=== PATIENT | female | born 1960 | race Caucasian/White ===

== ENCOUNTER → 2016-11-23 | Outpatient (CLI) | payer BC ==
[~2016-11-23] MED LIST: AMIT75TA2 PO; ASPEC325 PO; ASPI81TA28 PO; BROM0.07 OPL; CALCTAB5 PO; CHOL100027 PO; CLC100 PO; FLUT0.15 NAE; MECL25TA2 PO; NAPR500T3 PO; OXYC-57 PO; PRED1SUS OPL; PREG75CA PO; SENNTAB23 PO; SUCR1TAB29 PO; SUMA6KIT INJ; TIZA4CAP PO; TOPI50TA24 PO; ULT50X PO
== END | disposition home or self-care (01) ==
LOC: C.RDSM 15:59
PROVIDERS: ATTEND Physical Medicine & Rehabilitation Sports Medicine
DX: M17.12 Unilateral primary osteoarthritis, left knee (principal); M25.662 Stiffness of left knee, not elsewhere classified; Z96.652 Presence of left artificial knee joint

== ENCOUNTER 2017-02-09 07:51 | Inpatient (IN) | payer BC ==
[2017-01-25 14:38] VITALS: BMI 32.0
--- NOTE | 2017-01-25 15:03 | PAT Medication Instructions ---
Service Date Jan 25, 2017. Current Home Medication List Amitriptyline Hcl (Elavil), 150 MG PO HS Aspirin (Aspirin Ec), 81 MG PO QAM Calcium (Caltrate), 600 MG PO QAM Cholecalciferol (Vitamin D 1000 Unit), 2,000 INTER.UNIT PO QAM Docusate Sodium (Docusate Sodium), 100 MG PO BID Fluticasone Propionate (Nasal) (Flonase Allergy Relief), 2 SPRAY ELIZA DAILY PRN for allergies Meclizine Hcl (Antivert), 12.5-25 MG PO TID PRN for DIZZINESS Naproxen (Naproxen), 1 TAB PO BID PRN for Pain Pregabalin (Lyrica), 75 MG PO BID Sennosides-Docusate Sodium (Stool Softener), 100 MG PO QAM Topiramate (Topamax), 1 TAB PO BID Medication Instructions For Your Scheduled Surgery - Hold the following medications the morning of surgery: Calcium (Caltrate), 600 MG PO QAM Cholecalciferol (Vitamin D 1000 Unit), 2,000 INTER.UNIT PO QAM Docusate Sodium (Docusate Sodium), 100 MG PO BID Naproxen (Naproxen), 1 TAB PO BID PRN for Pain Sennosides-Docusate Sodium (Stool Softener), 100 MG PO QAM - Take the following medications the morning of surgery with a sip of water OTHERWISE NOTHING TO EAT OR DRINK AFTER MIDNIGHT: Aspirin (Aspirin Ec), 81 MG PO QAM Pregabalin (Lyrica), 75 MG PO BID Fluticasone Propionate (Nasal) (Flonase Allergy Relief), 2 SPRAY ELIZA DAILY PRN for allergies Meclizine Hcl (Antivert), 12.5-25 MG PO TID PRN for DIZZINESS Topiramate (Topamax), 1 TAB PO BID - Take the following medications as scheduled the night before surgery: Amitriptyline Hcl (Elavil), 150 MG PO HS Docusate Sodium (Docusate Sodium), 100 MG PO BID Pregabalin (Lyrica), 75 MG PO BID Meclizine Hcl (Antivert), 12.5-25 MG PO TID PRN for DIZZINESS Naproxen (Naproxen), 1 TAB PO BID PRN for Pain Topiramate (Topamax), 1 TAB PO BID If you have any questions please call us at [phone] or [phone] or [phone]
[2017-01-25 15:51] LABS: BASO % 0.6 %; BASO ABS # 0.03 K/uL (0-0.2); COMPLETE YES; EOS % 1.8 %; HEMATOCRIT 37.1 % (37-47); LYMPH % 36.1 %; LYMPH ABS # 1.82 K/uL (1.2-3.4); MEAN CELL VOLUME 90.7 fL (80-100); MEAN CORPUSCULAR HEMOGLOBIN 30.8 pg (25-34); MEAN PLATELET VOLUME 9.2 fL (7.4-10.4); MONO % 10.1 %; NEUT % 51.4 %; PLATELET COUNT 240 K/uL (130-400); RED BLOOD COUNT 4.09 M/uL (4.2-5.4); WHITE BLOOD COUNT 5.04 K/uL (4.8-10.8)
[2017-01-25 16:04] LABS: BUN/CREATININE RATIO 22.8 (10-20); CALCIUM 9.2 mg/dl (8.5-10.1); CREATININE 0.72 mg/dl (0.60-1.20); POTASSIUM 3.7 mmol/L (3.5-5.1)
--- NOTE | 2017-02-01 16:11 | History and Physical ---
History & Physical Date & Time of Service: Feb 01, 2017 at 15:52 Chief Complaint: Left Total Knee Stiffness Primary Care Physician: Gilbert Morejon M.D. (MEDICAL) History of Present Illness Source: patient Karo Chase is a 56 year old female who underwent a Left Total Knee Arthroplasty with Dr. Piero Mayberry on 08/25/16. She developed post operative stiffness and on 10/12/2016 she underwent a left Total Knee Arthroplasty Manipulation. Post operatively she was given instructions for outpatient physical therapy. She was provided with a Extension and Flexion dynamic splints for use at home. She performed outpatient physical therapy routinely. Her left knee stiffness persisted and plateaued. She is scheduled to have a left knee open debridement and manipulation, possible poly exchange with Dr. Mayberry on 02/09/17. She has stiffness daily, she is back to work but develops pain in that knee after working all day. She has failed conservative outpatient treatment with therapy and increasing range of motion. Surgical intervention discussed and she wishes to proceed with the aforementioned procedure with Dr. Mayberry. Past Medical/Surgical History Medical Problems: (1) Arthritis Status: Chronic (2) Fibromyalgia Status: Chronic 3. History of migraines 4. History of UTI, but nothing recent 5. S/p ORIF right humerus fracture with Dr. Mayberry in June 2015 6. History of tubal ligation 7. S/P left total knee arthroplasty 08/25/2016 and subsequent left total knee manipulation 10/12/[address] Mayberry Family History Blood clots Social History She does not currently use an assistive device for ambulation. Smoking Status: Never Smoker Smokeless Tobacco Use: No Alcohol Use: none Drug Use: none Marital Status: Housing status: lives with family Occupational Status: employed Immunizations History of Influenza Vaccine: Yes Influenza Vaccine Date: Aug 25, 2012 History of Tetanus Vaccine?: Yes Tetanus Immunization Date: Nov 13, 2010 History of Pneumococcal: Yes Pneumococcal Date: Aug 25, 2012 History of Hepatitis B Vaccine: Yes Hepatitis Immunization Date: Nov 22, 2002 Multi-Drug Resistant Organisms History of MDRO: No Allergies Coded Allergies: No Known Allergies (Unverified , 01/25/17) Home Medications Scheduled Amitriptyline Hcl (Elavil), 150 MG PO HS Aspirin (Aspirin Ec), 81 MG PO QAM Calcium (Caltrate), 600 MG PO QAM Cholecalciferol (Vitamin D 1000 Unit), 2,000 INTER.UNIT PO QAM Docusate Sodium (Docusate Sodium), 100 MG PO BID Pregabalin (Lyrica), 75 MG PO BID Sennosides-Docusate Sodium (Stool Softener), 100 MG PO QAM Topiramate (Topamax), 1 TAB PO BID Scheduled PRN Fluticasone Propionate (Nasal) (Flonase Allergy Relief), 2 SPRAY ELIZA DAILY PRN for allergies Meclizine Hcl (Antivert), 12.5-25 MG PO TID PRN for DIZZINESS Naproxen (Naproxen), 1 TAB PO BID PRN for Pain Review of Systems Constitutional: No chills, No fatigue, No fever, No sweats, No weight loss Eyes: No worsening of vision ENT: No dental problems, No hearing loss, No nasal symptoms, No sore throat Respiratory: No cough, No shortness of breath, No wheezing Cardiovascular: No chest pain, No edema, No palpitations Abdomen: No constipation, No diarrhea, No nausea, No pain, No vomiting Musculoskeletal: + joint pain (mild pain left knee), No calf pain, No swelling Genitourinary - Female: No dysuria, No rash, No urinary frequency, No urinary incontinence, No urinary urgency Neurologic: No balance problems, No memory loss, No numbness/tingling Psychiatric: No anxiety, No depression symptoms Hematologic / Lymphatic: No abnormal bleeding/bruising, No clotting problems Integumentary: No itch, No rash Physical Exam General Appearance: WD/WN, no apparent distress, + pertinent finding (normal mood and affect, height is 5 feet 2 inches, Weight is 185 pounds.) Head: normocephalic, atraumatic Eyes: normal inspection, PERRL, EOMI, sclerae normal ENT: normal ENT inspection, hearing grossly normal, TMs normal, pharynx normal , + pertinent finding (Good dentition) Neck: supple, no adenopathy, no carotid bruits, trachea midline Respiratory/Chest: chest non-tender, lungs clear, normal breath sounds, no respiratory distress, no accessory muscle use Cardiovascular: regular rate, rhythm, no edema, no murmur, normal peripheral pulses Abdomen/GI: normal bowel sounds, non tender, soft Back: normal inspection, normal range of motion Extremities/Musculoskelatal: no calf tenderness, normal capillary refill, no pedal edema, + pertinent finding (ROM left knee 30-80 degrees) Neurologic/Psych: no motor/sensory deficits, alert, normal mood/affect, oriented x 3 Skin: normal color, warm/dry, no rash Lymphatic: no adenopathy Diagnostics Laboratory Results 01/25/17 15:05 Red Blood Count 4.09, Mean Corpuscular Volume 90.7, Mean Corpuscular Hemoglobin 30.8, Mean Corpuscular Hemoglobin Concent 34.0, Mean Platelet Volume 9.2, Neutrophils (%) (Auto) 51.4, Lymphocytes (%) (Auto) 36.1, Monocytes (%) (Auto) 10.1, Eosinophils (%) (Auto) 1.8, Basophils (%) (Auto) 0.6, Neutrophils # (Auto ) 2.59, Lymphocytes # (Auto) 1.82, Monocytes # (Auto) 0.51, Eosinophils # (Auto ) 0.09, Basophils # (Auto) 0.03 01/25/17 15:05 Test 01/25/17 15:05 01/25/17 15:25 White Blood Count 5.04 K/uL (4.8-10.8) Red Blood Count 4.09 M/uL (4.2-5.4) Hemoglobin 12.6 g/dL (12.0-16.0) Hematocrit 37.1 % (37-47) Mean Corpuscular Volume 90.7 fL (80-100) Mean Corpuscular Hemoglobin 30.8 pg (25-34) Mean Corpuscular Hemoglobin Concent 34.0 g/dl (32-36) Platelet Count 240 K/uL (130-400) Mean Platelet Volume 9.2 fL (7.4-10.4) Neutrophils (%) (Auto) 51.4 % Lymphocytes (%) (Auto) 36.1 % Monocytes (%) (Auto) 10.1 % Eosinophils (%) (Auto) 1.8 % Basophils (%) (Auto) 0.6 % Neutrophils # (Auto) 2.59 K/uL (1.4-6.5) Lymphocytes # (Auto) 1.82 K/uL (1.2-3.4) Monocytes # (Auto) 0.51 K/uL (0.11-0.59) Eosinophils # (Auto) 0.09 K/uL (0-0.5) Basophils # (Auto) 0.03 K/uL (0-0.2) RDW Standard Deviation 42.7 fL (36.4-46.3) RDW Coefficient of Variation 12.8 % (11.5-14.5) Immature Granulocyte % (Auto) 0.0 % Immature Granulocyte # (Auto) 0.00 K/uL (0.00-0.02) Anion Gap 8.0 mmol/L (3-11) Est Creatinine Clear Calc Drug Dose 85.8 ml/min Estimated GFR () 108.5 Estimated GFR (Non- 93.6 BUN/Creatinine Ratio 22.8 (10-20) Calcium Level 9.2 mg/dl (8.5-10.1) Prothrombin Time 11.0 SECONDS (9.0-12.0) Prothromb Time International Ratio 1.0 (0.9-1.1) Activated Partial Thromboplast Time 25.3 SECONDS (21.0-31.0) Partial Thromboplastin Ratio 1.0 CXR normal Normal EKG Impression Assessment and Plan Assessment: Left total knee arthroplasty Stiffness Plan: Patient will be admitted on 02/09/2017 to undergo and left total knee open debridement and manipulation, possible poly exchange due to post operative stiffness left knee. Risks/complications of surgery were discussed and include but are not limited to infection, pain, bleeding, scarring, nerve and blood vessel damage, wound problems, weakness, stiffness, incomplete relief of symptoms, blood clots, hardware failure, loosening, wear, fracture, embolisms, heart attack, stroke or . All questions were answered, informed consent obtained. She had a Pre-Admission testing appointment on 01/25/2017. Her surgery will be completed with spinal anesthesia/peripheral nerve block. She will obtain a preoperative CBC, PRP, PT/PTT and Type and Screen prior to surgery. No medical clearance is necessary prior to surgery. She will be in observation overnight for pain control, inpatient physical therapy. She was instructed to bring or flexion and extension braces to the hospital with her. She was instructed to be NPO p MN. She well be placed on Lovenox 40mg daily x 2 weeks which was sent to her pharmacy preoperatively with a refill available. All questions were answered, she knows to call with any further questions or concerns. Level of Care Med/Surg Advanced Directives Existing Living Will: No Existing Power of Child Care Sitter: No VTE Prophylaxis VTE Risk Assessment Done? Y/N: Yes Risk Level: Moderate Given or contraindicated: Enoxaparin (Lovenox)SQ (40 mg daily x 2 weeks), T.E.D. Stockings
[~2017-02-09] VITALS: Ht 157.5 cm; Wt 80.5 kg
[2017-02-09] VITALS (7 sets, daily range): BP systolic 110–139; BP diastolic 64–76; PULSE 67–104; TEMP 36.4–36.8; O2SAT 94–99; Ht 157.5 cm; Wt 80.5 kg
[~2017-02-09 07:51] MED LIST changes: +ACETAMINOPHEN 500 MG TAB PO SCH; -ASPEC325 PO; -BROM0.07 OPL; +BUPIVACAINE 0.5 % 5 MG/1 ML PF 10ML VIAL ONE; +CEFAZOLIN 2000 MG/60 ML D5W 60 ML IV SCH; +CLONIDINE HCL 0.1 MG/24 HR TRANSDERM SYS TD SCH; +CeleBREX 200 MG CAP PO SCH; +DEXAMETHASONE 4 MG TAB PO SCH; +FAMOTIDINE 20 MG TAB PO SCH; +GABAPENTIN 300 MG CAP PO SCH; +LACTATED RINGER'S 1000ML 1,000 ML IV SCH; +LACTATED RINGER'S 1000ML 500 ML IV ONE; +LACTATED RINGER'S 1000ML IV SCH; +METOCLOPRAMIDE HCL 10 MG TAB PO SCH; -OXYC-57 PO; +OXYCODONE HCL 10 MG TABCR (OXYCONTIN) PO SCH; -PRED1SUS OPL; +ROPIVACAINE 0.5% 5 MG/ML 30 ML VIAL ONE; +ROPIVACAINE 5MG/ML 30 ML 100 MG, MoRPHine SULFATE 4 MG, EpINEphrine INJ 1MG/ML AMP 0.2 ... INFIL SCH; -SUCR1TAB29 PO; -SUMA6KIT INJ; -TIZA4CAP PO; +TRAMADOL HCL 50 MG TAB PO SCH; -ULT50X PO
[2017-02-09] MEDS ORDERED: MIDAZOLAM HCL 1 MG/ML 2ML VIAL ONE ×3 (08:03→09:15)
[2017-02-09] MEDS ORDERED: PROPOFOL IV EMULSION 10 MG/ML 20 ML VIAL IV ONE ×4 (08:47→12:22)
[2017-02-09] MEDS ORDERED: DEXAMETHASONE SOD INJ 4 MG/ML VIAL ONE (08:47)
[2017-02-09] MEDS ORDERED: FENTANYL CITRATE INJ 50 MCG/1 ML 2 ML VIAL ONE (08:47)
[2017-02-09] MEDS ORDERED: ONDANSETRON INJ 2 MG/ML 2 ML VIAL ONE (08:47)
[2017-02-09] MEDS ORDERED: LIDOCAINE HCL 2% 2 ML VIAL (20MG/ML) ONE (08:47)
[2017-02-09] MEDS ORDERED: PHENYLEPHRINE 100MCG/ML 5ML SYR IV PRN (09:15)
[2017-02-09] MEDS ORDERED: EpHEDrine SULFATE INJ 50 MG/ML AMP IV PRN (09:15)
[2017-02-09] MEDS ORDERED: ATROPINE SULFATE 0.1 MG/ML 5ML SYR IV PRN (09:15)
[2017-02-09] MEDS ORDERED: HYDROmorphone INJ 2 MG/ML SYR/VIAL IV PRN (09:15)
[2017-02-09] MEDS ORDERED: ONDANSETRON INJ 2 MG/ML 2 ML VIAL IV PRN ×2 (09:15→13:45)
--- NOTE | 2017-02-09 09:52 | History & Physical Bridge Note ---
H&P Re-Evaluation Bridge Note: I have examined the patient, reviewed the History & Physical and in the interval since the performance of the History & Physical I have noted the following changes of clinical significance: No changes noted
[2017-02-09] MEDS ORDERED: BACITRACIN 50000 UNIT VIAL ONE (10:08)
[2017-02-09] MEDS ORDERED: ORTHO JOINT ANESTHETIC ONE (10:08)
[2017-02-09] MEDS ORDERED: EpHEDrine SULFATE 50MG/5ML SYR ONE (10:45)
[2017-02-09] MEDS ORDERED: EpHEDrine SULFATE INJ 50 MG/ML AMP ONE (11:45)
[2017-02-09] MEDS ORDERED: PHENYLEPHRINE HCL INJ 10 MG/ML VIAL ONE (12:56)
[2017-02-09] MEDS ORDERED: SOD PHOSPHATE/SOD BIPHOSPHATE ENEMA 132 ML BTL PR PRN (13:45)
[2017-02-09] MEDS ORDERED: MECLIZINE HCL 25 MG TAB PO PRN (13:45)
[2017-02-09] MEDS ORDERED: TRAMADOL HCL 50 MG TAB PO PRN (13:45)
[2017-02-09] MEDS ORDERED: BISACODYL 10 MG SUPP PR PRN (13:45)
[2017-02-09] MEDS ORDERED: FLUTICASONE PROPIONATE NA SPR 16 GM BTL NAE PRN (13:45)
[2017-02-09] MEDS ORDERED: ALUMINUM/MAGNESIUM/SIMETH (MAALOX MAX) 30 ML UDC PO PRN (13:45)
[2017-02-09] MEDS ORDERED: MoRPHine SULFATE 2 MG/ML CARP IV PRN (13:45)
[2017-02-09] MEDS ORDERED: MAGNESIUM HYDROXIDE SUSP 30 ML UDC PO PRN (13:45)
--- NOTE | 2017-02-09 14:04 | [facility] Post Operative Brief Note ---
Immediate Operative Summary Operative Date Feb 09, 2017. Pre-Operative Diagnosis Left Total Knee Arthroplasty Stiffness Post-Operative Diagnosis Left Total Knee Arthroplasty Stiffness Procedure(s) Performed Left Knee Open Debridement and Manipulation, Poly Exchange Surgeon Dr. Piero Mayberry Insurance Agents Supervisor Surgeon(s) Emily Hoskins PA-C Estimated Blood Loss 100ML Findings arthofibrosis Specimens A. Left Knee Explanted Hardware Drains 2 Anesthesia spinal with sedation/adductor block Complication(s) None Disposition Recovery Room / PACU
--- NOTE | 2017-02-09 14:37 | Anesthesiology Progress Note ---
Anesthesia Post Op Note Date & Time Feb 09, 2017 at 14:37 Vital Signs Pain Intensity: 0 Vital Signs Past 12 Hours Date Time Temp Pulse Resp B/P Pulse Ox O2 Delivery O2 Flow Rate FiO2 02/09/17 14:13 84 18 97 02/09/17 14:13 84 18 02/09/17 14:13 84 18 02/09/17 14:13 84 18 97 02/09/17 14:10 110/60 02/09/17 14:10 110/60 02/09/17 14:08 87 18 96 02/09/17 14:08 88 18 02/09/17 14:08 87 18 96 02/09/17 14:08 88 18 02/09/17 14:05 126/61 02/09/17 14:05 126/61 02/09/17 14:03 89 23 96 02/09/17 14:03 87 23 02/09/17 14:03 89 23 96 02/09/17 14:03 87 23 02/09/17 14:00 127/57 02/09/17 14:00 127/57 02/09/17 13:58 86 13 95 02/09/17 13:58 87 13 02/09/17 13:58 86 13 95 02/09/17 13:58 87 13 02/09/17 13:55 121/60 02/09/17 13:55 121/60 02/09/17 13:53 93 17 95 02/09/17 13:53 93 17 95 02/09/17 13:53 92 17 02/09/17 13:53 92 17 02/09/17 13:50 103/61 02/09/17 13:50 103/61 02/09/17 13:48 94 17 02/09/17 13:48 93 17 105/58 96 02/09/17 13:48 35.8 93 16 105/58 95 Mask 10 02/09/17 13:48 94 17 02/09/17 13:48 93 17 105/58 96 02/09/17 08:37 36.8 67 18 123/64 97 Room Air Notes Mental Status: alert / awake / arousable, participated in evaluation Pt Amnestic to Procedure: Yes Nausea / Vomiting: adequately controlled Pain: adequately controlled Airway Patency, RR, SpO2: stable & adequate BP & HR: stable & adequate Hydration State: stable & adequate Anesthetic Complications: no major complications apparent
--- NOTE | 2017-02-09 15:15 | OPERATIVE REPORT ---
DATE OF OPERATION: 02/09/2017 PREOPERATIVE DIAGNOSIS: Arthrofibrosis, status post left total knee replacement. POSTOPERATIVE DIAGNOSIS: Same. PROCEDURE: Open scar tissue debridement, manipulation and polyethylene exchange. SURGEON: Piero Mayberry MD SCUBA DIVING TEACHER: Emily Hoskins PA-C. No resident or fellow available. ANESTHESIA: Spinal with sedation and adductor canal block. INDICATIONS OF PROCEDURE: The patient is a 56-year-old female status post otherwise uncomplicated left total knee arthroplasty. This was done back in August. She developed postoperative stiffness, underwent a manipulation in October and currently has stiffness, which interferes with her ADLs. Prior to her initial surgery in August, she was noted to have an approximate 20-degree flexion contracture in her knee. Her flexion at that time was approximately 125-130 degrees. After the initial operation, she did have full extension and good flexion on the table, subsequently has developed stiffness. X-rays showed no evidence of heterotopic ossification. There is no malpositioning or oversizing of the components evident. Sed rate and C-reactive protein are within normal limits and so, there is no evidence of infection. She has undergone extensive therapy as well as use of dynamic flexion and extension splints without relief. PROCEDURE IN DETAIL: Informed consent was obtained. The patient identified as Karo Chase. She identified the operative site as the left knee. I marked it with my initials. A preop surgical time out was performed. A preop dose of IV antibiotics was given. She was taken to the operating room, positioned supine on the operating room table, a tourniquet about the left thigh, a padded post under the knee and a bump under the left hip, the leg was prepped and draped in usual sterile fashion. DVT prophylaxis intraoperatively with foot pumps, postoperatively with early mobility and Lovenox. The exam under anesthesia showed no effusion, no patellar mobility, range 0/25/85. A gentle manipulation was attempted without any improvement. The leg was prepped and draped in the usual sterile fashion including the foot. The limb was exsanguinated with the Esmarch and tourniquet inflated to 250 mmHg. The prior incision was opened and lengthened by a few centimeters in each direction. The extensor mechanism was identified and when possible, I developed virginal tissue planes, particularly medially and allowing the excessive scar tissue to be dissected off of the extensor mechanism. A lateral flap was elevated as well to machine operator helper in identifying the extensor mechanism. A medial parapatellar arthrotomy and a quadriceps snip was marked out. The arthrotomy was performed and the quadriceps snip beginning at the apex of the incision proximally was performed across the quadriceps tendon and dividing the fascia of the vastus lateralis. The muscle itself was left intact. There was minimal fluid within the knee. There was some fibrinous material in the intercondylar notch and in the very posterior aspect of the knee, but otherwise was fairly solid scar tissue. There were large adhesions in the suprapatellar pouch and these were excised with electrocautery. The quadriceps and patellar tendons were noted to be markedly thickened about 1.5-2 cm in thickness. Debridement of these was performed as appropriate. The medial and lateral gutters were closed off with scar tissue and these were carefully recreated with blunt dissection and electrocautery. The patella was identified and scar tissue around the patellar button was removed. Care was taken at all times to protect the intact components. The patellar tendon was scarred down to the proximal tibia. This was resected up to the level of what was believed to be the patellar tendon. The lateral soft tissue in the lateral gutter was debrided and the lateral margin on the tibia was defined. The tissue was very thick and rigid and then some areas would not like and required significant debridement in order to improve tissue mobility. I identified the lateral border of the patella extra-articularly. This was [place] tissue. I dissected deep to it to identify the plane between the tibia, scar tissue and the patellar tendon, and then resected all the scar tissue that was present posterior to this level up to the level of the inferior pole of the patella and out laterally. I then placed a 1/8-inch Steinmann pin into the tibial tubercle to prevent avulsion and down along with a combination of quadriceps snip, allowed flexion of the knee and dislocation of the polyethylene component. An extensile medial release was performed in a subperiosteal fashion. The medial gutter was carefully recreated. Both collateral ligaments were preserved. The components looked normal. There were some scattered areas of soft bone around the proximal tibia neither the femur, tibia or patella were loose to manual stressing. The polyethylene component was removed and then a lamina license examiner was inserted in between the medial and lateral compartments when appropriate, padded with a double folded over a lap sponge and used to open up the joint. Scar tissue in the back of the knee was then debrided back to the level of the popliteus muscle. Again, the collateral ligaments were protected. The scar tissue was incised and then excised as well. The lamina license examiner was one without teeth. After thoroughly releasing and debriding the posterior capsule and also releasing more tissue on the lateral joint area, there was a small ossicle noted laterally, which was also removed adjacent to the tibia. The 10-mm polyethylene was inserted. This was downsized compared to the 12.5 that was present. This resulted in extension of -5 and flexion to about 110-115. Gentle manipulation in both flexion and extension was performed. The knee was stable in full extension. In mid position, there was trace LCL laxity and in 90 degrees of flexion, there was a 1+ LCL laxity. The patella was somewhat positioned inferior and tend to track inferior. At this time, the tourniquet was let down after 100 minutes of inflation. Meticulous hemostasis was performed. Ortho mix #1 morphine, epinephrine, and ropivacaine was injected into the back of the knee, 10 mL. Ten mL into the skin and soft tissues and 10 mL divided between the medial and lateral gutters. Copious irrigation was performed. Meticulous hemostasis was achieved and Betadine lavage for 3-5 minutes was performed. The manipulation was also performed. The final polyethylene implant was inserted showing aforementioned range of motion of 0/5/115. The knee was then placed into about 45-60 degrees of flexion. I performed V-Y lengthening of the extensor mechanism by a distance of about 2 cm, which I felt would help improve flexion. The knee was held in this position and #2 FiberWire was utilized to repair the quadriceps snip in an anatomic fashion. Prior to that, the quadriceps main division was repaired back in an anatomic fashion. Two drains were inserted exiting out the lateral knee. Interrupted #2 FiberWires were utilized down to the equator of the patella. This was oversewn over the quadriceps snip and the arthrotomy with a running locked #1 Vicryl. The lower portion of the arthrotomy was closed with running and interrupted #1 Vicryl. The skin was closed in layers with 0 and 2-0 Vicryl. The range of motion again was assessed and found to be the same. Staple was utilized on the skin. The leg was cleaned with wet and dry sponges. A soft sterile dressing was applied. The patient was then awakened from anesthesia without difficulty, taken to recovery room in stable condition. There were no specimens or complications. Counts were correct at the end of case. Blood loss was approximately 100 mL. At the conclusion of the operation, I spoke to the patient's family and informed them of my findings. Postoperative instructions were given. Plan is for anticoagulation with Lovenox beginning in the morning. I will go ahead and work on aggressive physical therapy to maintain and improve range of motion. Pain control is also a priority. The 12.5-mm thick size 2.5 polyethylene insert was exchanged for a 10-mm thick one. This seemed to help improve the range of motion as well. This is a J\T\J PFC Sigma rotating platform type knee. I attest to the content of the Intraoperative Record and any orders documented therein. Any exceptio ns are noted below.
[2017-02-09] MEDS: OXYCODONE HCL IR 5 MG TAB (IMMEDIATE RELEASE) PO PRN ×2 (16:42→20:41)
[2017-02-09] MEDS: D5W AND 1/2NSS + 20MEQ KCL 1,000 ML IV SCH (16:58)
--- NOTE | 2017-02-09 17:24 | [facility] Operative Report ---
Operative Report Operative Date Feb 09, 2017. Pre-Operative Diagnosis Left Total Knee Arthroplasty Stiffness Post-Operative Diagnosis Left Total Knee arthroplasty Stiffness Procedure(s) Performed Left knee open debridement, manipulation under anesthesia, tibial poly exchange Surgeon Dr. Piero Mayberry Change Booth Attendant Surgeon(s) Emily Hoskins PA-C Estimated Blood Loss 100ML Findings stiffness left knee Specimens A. Left Knee Explanted Hardware Drains 2 Anesthesia spinal with sedation/adductor block Complication(s) None Disposition Recovery Room / PACU (stable) Indications Patient is a 56 year old female, s/p Left TKA in 08/2016, developed post operative stiffness, failed conservative treatment which included physical therapy, braces and manipulation under anesthesia. Surgical intervention was discussed, she agreed to proceed, risks/complications discussed, informed consent obtained. Description of Procedure Patient was taken to the operating room, placed under spinal anesthesia with peripheral nerve block. She was given IV Ancef for surgical prophylaxis. Time out performed, prepped and draped in routine sterile fashion. I was present the entire case, please see Dr. Mayberry's operative report for further detail. I attest to the content of the Intraoperative Record and any orders documented therein. Any exceptions are noted below.
[2017-02-09] MEDS: CEFAZOLIN IV 2,000 MG in DEXTROSE 5% 50ML 50 ML IV SCH (17:43)
[2017-02-09] MEDS: KETOROLAC TROMETHAMINE 30 MG/ML VIAL IV. SCH ×2 (17:43→23:42)
--- NOTE | 2017-02-09 18:34 | PROGRESS NOTE ---
DATE: 02/09/2017 She is seen postoperatively from her left knee surgery. No problems are reported. Her pain is well controlled. She will wear the knee brace at all times except when doing therapy. She will also need to wear it for ambulating until she gets better quad control. She had a 1+ dorsalis pedis with normal sensation in the foot. She had 5/5 ankle and toe plantar flexion and dorsiflexion strength. Her dressing was clean and dry. I discussed with her my findings. The plan will be for to check drainage in the morning, possibly pull the drain, do therapy and start the Lovenox in the morning. We discussed the improvement in her range of motion. We will try to prevent flexion contracture from reoccurring by wearing a knee immobilizer when she is not doing flexion exercises and also at night. She is afebrile. Her vital signs are stable.
[2017-02-09] MEDS: PREGABALIN 75 MG CAP PO SCH (20:41)
[2017-02-09] MEDS: TOPIRAMATE 25 MG TAB PO SCH (20:42)
[2017-02-09] MEDS: DOCUSATE SODIUM 100 MG CAP PO SCH (20:42)
[2017-02-09] MEDS: AMITRIPTYLINE HCL 50 MG TAB PO SCH (20:42)
[2017-02-09] MEDS ORDERED: CeleBREX 200 MG CAP PO SCH (21:00)
[2017-02-10] MEDS: OXYCODONE HCL IR 5 MG TAB (IMMEDIATE RELEASE) PO PRN ×3 (01:54→21:27)
[2017-02-10] MEDS: CEFAZOLIN IV 2,000 MG in DEXTROSE 5% 50ML 50 ML IV SCH (01:54)
[2017-02-10] MEDS: D5W AND 1/2NSS + 20MEQ KCL 1,000 ML IV SCH ×2 (03:08→12:13)
[2017-02-10 04:00] VITALS: BP_SYST 96; BP_SYST 97; BP_DIAS 55; BP_DIAS 58; PULSE 77; TEMP 36.5; O2SAT 100
[2017-02-10] MEDS: ACETAMINOPHEN 325 MG TAB PO PRN (04:01)
[2017-02-10 05:37] LABS: HEMATOCRIT 31.6 % (37-47); MEAN CELL VOLUME 92.1 fL (80-100); MEAN CORPUSCULAR HEMOGLOBIN 30.9 pg (25-34); MEAN CORPUSCULAR HGB CONC 33.5 g/dl (32-36); MEAN PLATELET VOLUME 9.3 fL (7.4-10.4); PLATELET COUNT 226 K/uL (130-400); RED BLOOD COUNT 3.43 M/uL (4.2-5.4); WHITE BLOOD COUNT 10.13 K/uL (4.8-10.8)
[2017-02-10] MEDS: KETOROLAC TROMETHAMINE 30 MG/ML VIAL IV. SCH ×2 (06:04→12:12)
[2017-02-10 06:50] VITALS: BP 97/58; PULSE 77; TEMP 36.6; O2SAT 98
[2017-02-10] MEDS ORDERED: DEXAMETHASONE 4 MG TAB PO SCH (07:30)
--- NOTE | 2017-02-10 08:21 | Orthopedic Progress Note ---
Orthopedic Progress Note Date of Service Feb 10, 2017. Subjective Post OP Day: 1 Reports: feeling well, pain controlled w PO medications, Denies: SOB, calf pain , chest pain, complaints, light headedness, nausea / vomiting Additional Notes: States had some pain last night, especially at upper thigh, but much improved Objective calves soft nontender, N/V intact, capillary refill less than 2 sec., dressing C /D/I, A&O x3, toes mobile, hemovac drainage (125ml last shift.) Knee immobilizer in place Date Time Temp Pulse Resp B/P Pulse Ox O2 Delivery O2 Flow Rate FiO2 02/10/17 06:50 36.6 77 18 97/58 98 Room Air 02/10/17 04:00 36.5 77 16 96/55 100 Room Air 97/58 02/09/17 22:50 36.4 77 16 121/69 99 Room Air 02/09/17 19:20 Room Air 02/09/17 18:54 36.4 104 16 125/74 94 Room Air 02/09/17 17:53 36.4 104 16 129/75 96 Room Air 02/09/17 16:53 36.4 96 16 139/76 97 Room Air 02/09/17 16:27 36.4 98 16 120/69 97 Room Air 02/09/17 15:50 95 Room Air 02/09/17 15:50 95 Room Air 02/09/17 15:50 36.8 94 16 110/68 95 Room Air 2.0 02/09/17 15:32 94 16 02/09/17 15:32 92 16 96 02/09/17 15:30 128/62 02/09/17 15:27 94 15 02/09/17 15:27 95 15 97 02/09/17 15:26 103 14 02/09/17 15:26 103 14 96 02/09/17 15:25 134/65 02/09/17 15:21 98 16 96 02/09/17 15:21 98 16 02/09/17 15:20 113/64 02/09/17 15:16 97 19 96 02/09/17 15:16 97 19 02/09/17 15:15 130/68 02/09/17 15:11 93 16 97 02/09/17 15:11 93 16 02/09/17 15:10 128/62 02/09/17 15:06 98 20 02/09/17 15:06 98 20 97 02/09/17 15:05 127/61 02/09/17 15:01 108 14 94 02/09/17 15:01 108 14 02/09/17 14:56 96 19 95 02/09/17 14:56 97 19 02/09/17 14:55 130/63 02/09/17 14:51 99 19 95 02/09/17 14:51 98 19 02/09/17 14:50 125/62 02/09/17 14:46 91 15 02/09/17 14:46 90 15 95 02/09/17 14:45 130/62 02/09/17 14:41 94 21 94 02/09/17 14:41 94 21 02/09/17 14:40 113/63 02/09/17 14:39 92 16 02/09/17 14:39 93 16 94 02/09/17 14:35 120/62 02/09/17 14:34 88 15 95 02/09/17 14:34 88 15 02/09/17 14:34 36.9 90 21 120/62 93 Room Air 02/09/17 14:30 113/61 02/09/17 14:29 85 18 96 02/09/17 14:29 86 18 02/09/17 14:25 120/63 02/09/17 14:24 86 15 02/09/17 14:24 87 15 97 02/09/17 14:20 109/66 02/09/17 14:19 86 15 97 02/09/17 14:19 86 15 02/09/17 14:15 116/60 02/09/17 14:14 87 16 02/09/17 14:14 87 16 96 02/09/17 14:13 84 18 97 02/09/17 14:13 84 18 02/09/17 14:13 84 18 02/09/17 14:13 84 18 97 02/09/17 14:10 110/60 02/09/17 14:10 110/60 02/09/17 14:08 87 18 96 02/09/17 14:08 88 18 02/09/17 14:08 87 18 96 02/09/17 14:08 88 18 02/09/17 14:05 126/61 02/09/17 14:05 126/61 02/09/17 14:03 89 23 96 02/09/17 14:03 87 23 02/09/17 14:03 89 23 96 02/09/17 14:03 87 23 02/09/17 14:00 127/57 02/09/17 14:00 127/57 02/09/17 13:58 86 13 95 02/09/17 13:58 87 13 02/09/17 13:58 86 13 95 02/09/17 13:58 87 13 02/09/17 13:55 121/60 02/09/17 13:55 121/60 02/09/17 13:53 93 17 95 02/09/17 13:53 93 17 95 02/09/17 13:53 92 17 02/09/17 13:53 92 17 02/09/17 13:50 103/61 02/09/17 13:50 103/61 02/09/17 13:48 94 17 02/09/17 13:48 93 17 105/58 96 02/09/17 13:48 35.8 93 16 105/58 95 Mask 10 02/09/17 13:48 94 17 02/09/17 13:48 93 17 105/58 96 02/09/17 08:37 36.8 67 18 123/64 97 Room Air Laboratory Results 24 Hours: Test 02/10/17 05:17 Hematocrit 31.6 % Hemoglobin 10.6 g/dL Assessment & Plan Assessment: S/P open debridement; manipulation, poly exchange left knee for stiffness - POD 1 Plan: Continue out of bed/WBAT LLE PT today Knee immobilizer at rest and when in bed to help keep knee straight. Ice/elevation as needed for pain/swelling Continue hemovac, will recheck drainage later today. Functioning Start Lovenox 40 mg daily for DVT prophylaxis today. Regular diet Plan for discharge to her home with outpatient PT on . All questions answered, will discuss findings with Dr. Mayberry. Discharge Planning Discharge Planning: home with oppt Pain Management: Percocet, Ultram DVT Prophylaxis: TEDs, Lovenox (40 mg SQ daily x 2-4 weeks) Therapy: Physical Therapy
--- NOTE | 2017-02-10 08:50 | Anesthesiology Progress Note ---
Anesthesia Post Op Note Date & Time Feb 10, 2017 at 08:49 Vital Signs Vital Signs Past 12 Hours Date Time Temp Pulse Resp B/P Pulse Ox O2 Delivery O2 Flow Rate FiO2 02/10/17 08:00 Room Air 02/10/17 06:50 36.6 77 18 97/58 98 Room Air 02/10/17 04:00 36.5 77 16 96/55 100 Room Air 97/58 02/09/17 22:50 36.4 77 16 121/69 99 Room Air Notes Mental Status: alert / awake / arousable, participated in evaluation Pt Amnestic to Procedure: Yes Nausea / Vomiting: adequately controlled Pain: adequately controlled Airway Patency, RR, SpO2: stable & adequate BP & HR: stable & adequate Hydration State: stable & adequate Neuraxial Anesthesia: sensory block resolved Anesthetic Complications: no major complications apparent
[2017-02-10] MEDS: ENOXAPARIN 40 MG/0.4 ML SYR SQ SCH (09:33)
[2017-02-10] MEDS: CHOLECALCIFEROL 1000 INTER.UNIT TAB PO SCH (09:33)
[2017-02-10] MEDS: PANTOprazole SOD 40 MG TAB PO SCH (09:33)
[2017-02-10] MEDS: TOPIRAMATE 25 MG TAB PO SCH ×2 (09:33→21:00)
[2017-02-10] MEDS: PREGABALIN 75 MG CAP PO SCH ×2 (09:33→21:00)
[2017-02-10] MEDS: DOCUSATE SODIUM 100 MG CAP PO SCH ×2 (09:34→21:00)
[2017-02-10] MEDS: MULTIVITAMIN TAB PO SCH (09:34)
[2017-02-10] MEDS: CALCIUM 600MG + VIT D 400 IU TAB PO SCH (09:34)
[2017-02-10] MEDS: ASPIRIN 81 MG ECTAB PO SCH (09:34)
[2017-02-10 10:59] VITALS: BP 105/64; PULSE 73; TEMP 36.4; O2SAT 97
--- NOTE | 2017-02-10 13:59 | Discharge Instructions ---
Discharge Instructions Date of Service Feb 10, 2017. Admission Reason for Admission: Left Knee Stiff Total Knee Arthroscopy Discharge Discharge Diagnosis / Problem: Stiffness left Total Knee Arthoplasty Discharge Goals Goal(s): Decrease discomfort, Improve function, Increase independence Activity Recommendations Activity Limitations: per Instructions/Follow-up section Weightbearing Status: Left weightbearing (as tolerated) . Instructions / Follow-Up Instructions / Follow-Up New Medicine: * You will likely be taking one or more of these medications: 1. Lovenox - 40mg SQ daily x 2-4 weeks. You were provided a prescription preoperatively for 14 days with a refill. 2. Percocet - Take, as directed, when you need it, every four to six hours to control your pain. 3. Colace & Senokot - Take to prevent constipation which can be caused by narcotics. These can be bought [id number] at the pharmacy * The most common side effects of pain medicine and iron are nausea and constipation. If nausea or constipation is too much of a problem or if you have any questions about your new medicines or doses, call [facility] at . We will try to help you manage these issues. VERY IMPORTANT TO READ AND REVIEW" Physical Therapy: * Do your physical therapy at home as much as possible. These are the exercises you learned while in the hospital (quad sets, leg raises, calf pumps, gluteal squeezes, knee bending, and heel props.) You should do these exercises 3-4 times per day. * You may bear full weight on your leg with crutches or walker unless otherwise advised. Home Exercise: * You were shown a series of exercises (heel props, heel slides, etc.) in the hospital. Do these exercises three to four times each day including the exercises you were shown in physical therapy. Walking: * You may be up for short periods of time. Standing and walking for 1-2 hours at a time is usually okay. You should not stand or walk for excessive periods of time as this may cause increased pain and swelling. SELF CARE INSTRUCTIONS AFTER TOTAL KNEE REPLACEMENT A. You may need to continue a physical therapy program after discharge from the hospital. There are several options available to you. Your doctor will assist you in selecting the best one for you. 1. An out-patient facility 2 to 3 times a week for therapy or home therapy. 2. Continue working on all exercises taught to you in the hospital. Your goals should be to increase bending of your knee to 90 degrees and beyond and to fully straighten your knee. B. Your therapist will notify you when you are able to progress from a walker to a cane. C. Wear TEDS as much as possible.~ They may be removed at night for laundering. D. Do not place a pillow behind your knee when resting. A pillow at your ankle is okay. E. Ice your knee 15-20 minutes every 2-3 hours and elevate it above the level of your heart. F. You may shower on the fourth day after surgery using regular soap and water. Do not submerge until the wound is completely healed (approximately 2 weeks ). Until the fourth day after surgery, cover the incision/bandage with a bag or plastic wrap. G. Anyone who is touching your surgical incision area should wash their hands and wear gloves. H. Keep your incision covered with gauze pads under the NILDA hose until it is dry. VERY IMPORTANT TO READ AND REVIEW A. There are a few signs you need to watch for after you are home. Call [facility] if you notice any of the followin. Increased severe knee pain. Some pain is expected especially when you exercise. 2. Increased swelling in your leg or knee; pain or swelling of the calf muscle in either lower leg. 3. Any fluid drainage from the incision. 4. Shortness of breath or chest pain. 5. Numbness and tingling in the surgical extremity B. Please call [facility] at if you have any concerns or questions about your operation or recovery. The doctor or his nurse will return your call promptly. C. Do not have any elective dental work or other elective procedures done for 6 weeks after your knee replacement. When you have any invasive procedure (dental cleaning, extraction, colonoscopy etc) performed, you will need to take antibiotics to prevent infection from developing in your artificial joint. Tell your other health care providers you have an artificial joint. My office will supply you with further information and the antibiotics. Call your doctor if: * Temperature above 101 degrees F. * Pain not relieved by pain medicine ordered. * Increased drainage or redness from incision. * Notify your doctor with any questions or concerns. Follow-up Visit: You will follow-up with Dr. Mayberry 10-14 days after surgery. The office number is . You will start physical therapy on Wednesday02/12/17 at 11:00 a.m. at [facility]. You have a follow up appointment schedule with Dr. Mayberry on 02/23/17 at 3:00 p.m. Avoid all tobacco products. If you need help to stop smoking, call [facility] FREE QUITLINE at . This is a free call. Current Hospital Diet Patient's current hospital diet: Regular Diet Discharge Diet Recommended Diet: Regular Diet Procedures Procedures Performed: Left Knee Open Debridement and Manipulation, Poly Exchange Pending Studies Studies pending at discharge: no Medical Emergencies . Who to Call and When: Medical Emergencies: If at any time you feel your situation is an emergency, please call 911 immediately. . Non-Emergent Contact Non-Emergency issues call your: Surgeon Call Non-Emergent contact if: temperature is above 101, your pain is not controlled, your pain is concerning you, wound has increased drainage, wound has increased pain, you have any medication questions . "Provider Documentation" section prepared by Emily Hoskins. VTE Core Measure Inpt VTE Proph given/why not?: Enoxaparin (Lovenox)SQ (40 mg daily x 2 weeks), T.E.D. Stockings
[2017-02-10 15:57] VITALS: BP 99/63; PULSE 79; TEMP 37.2; O2SAT 97
--- NOTE | 2017-02-10 18:53 | PROGRESS NOTE ---
DATE: 02/10/2017 SUBJECTIVE: No problems reported. She has been up with PT. She has been in and out of the knee immobilizer, working on straightening and bending. Required morphine for pain control this morning, but is now using more oral medications. She is afebrile. Her vital signs are stable. Her urine output is adequate. Her hemoglobin is 11. Drain output was 75 mL the last shift. I went ahead and pulled the drains. Reinforced exercises, looks like she is maintaining extension. 1+ dorsalis pedis, 5/5 ankle and toe plantar flexion and dorsiflexion with normal sensation. 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 PLAN: Drains were pulled. Continue PT. Change dressing tomorrow and reevaluate from there. Lovenox for DVT prophylaxis. Hep-Lock IV fluid.
[2017-02-10] MEDS: AMITRIPTYLINE HCL 50 MG TAB PO SCH (21:07)
[2017-02-10 23:15] VITALS: BP_SYST 102; BP_SYST 90; BP_DIAS 55; BP_DIAS 63; PULSE 78; TEMP 36.6; O2SAT 97
[2017-02-11] MEDS: OXYCODONE HCL IR 5 MG TAB (IMMEDIATE RELEASE) PO PRN ×3 (01:37→11:09)
[2017-02-11 06:50] VITALS: BP 105/66; PULSE 86; TEMP 36.6; O2SAT 97
[2017-02-11] MEDS: CHOLECALCIFEROL 1000 INTER.UNIT TAB PO SCH (07:20)
[2017-02-11] MEDS: ENOXAPARIN 40 MG/0.4 ML SYR SQ SCH (07:20)
[2017-02-11] MEDS: MULTIVITAMIN TAB PO SCH (07:20)
[2017-02-11] MEDS: PREGABALIN 75 MG CAP PO SCH (07:21)
[2017-02-11] MEDS: PANTOprazole SOD 40 MG TAB PO SCH (07:21)
[2017-02-11] MEDS: ASPIRIN 81 MG ECTAB PO SCH (07:21)
[2017-02-11] MEDS: CALCIUM 600MG + VIT D 400 IU TAB PO SCH (07:21)
[2017-02-11] MEDS: DOCUSATE SODIUM 100 MG CAP PO SCH (07:53)
[2017-02-11] MEDS: TOPIRAMATE 25 MG TAB PO SCH (07:53)
[2017-02-11] MEDS: ACETAMINOPHEN 325 MG TAB PO PRN (07:54)
--- NOTE | 2017-02-11 08:33 | Progress Note ---
Orthopedic SOAP Note Subjective Date of Service: Feb 11, 2017. Post OP Day: 2 Reports: feeling well, pain controlled w PO medications, Denies: SOB, calf pain , chest pain, complaints, light headedness, nausea / vomiting, using MUSEUM ASSISTANT Problem List Medical Problems: (1) Back pain Status: Acute (2) Humerus shaft fracture Status: Acute (3) Leg pain, left Status: Acute (4) Malunion and nonunion of fracture Status: Acute Objective calves soft nontender, N/V intact, capillary refill less than 2 sec., dressing C /D/I, incision C/D/I, A&O x3, toes mobile Date Time Temp Pulse Resp B/P Pulse Ox O2 Delivery O2 Flow Rate FiO2 02/11/17 07:20 Room Air 02/11/17 06:50 36.6 86 16 105/66 97 Room Air 02/10/17 23:26 Room Air 02/10/17 23:15 36.6 78 16 90/55 97 Room Air 102/63 02/10/17 15:57 37.2 79 17 99/63 97 02/10/17 15:20 Room Air 02/10/17 10:59 36.4 73 18 105/64 97 Room Air Assessment S/P open debridement; manipulation, poly exchange left knee for stiffness - POD 2 Plan Continue out of bed/WBAT LLE PT today Knee immobilizer at rest and when in bed to help keep knee straight. Ice/elevation as needed for pain/swelling HV drain pulled Lovenox 40 mg daily for DVT prophylaxis Regular diet Plan for discharge to her home with outpatient PT today All questions answered, will discuss findings with Dr. Mayberry.
[2017-02-11] MEDS ORDERED: OXYC-57 PO (08:36)
--- NOTE | 2017-02-11 09:31 | DISCHARGE SUMMARY ---
ATTENDING PHYSICIAN: Dr. Piero Mayberry. ADMISSION DIAGNOSIS AND DATE: Left knee degenerative joint disease on 02/09/2017. DISCHARGE DATE AND DIAGNOSIS: 02/11/2017 status post left total knee arthroplasty. PERTINENT DISCHARGE MEDICATIONS: 1. Percocet 5/325 mg tabs 1-2 every 4-6 hours as needed for pain. 2. Lovenox 40 mg subQ for DVT prophylaxis. HOSPITAL COURSE: Karo is a 56-year-old female patient of Dr. Mayberry's from [facility] that underwent left total knee arthroplasty by Dr. Piero Mayberry on 02/09/2017. She tolerated the procedure very well and over the next several days her activity levels progressed to the point where she was able to be discharged home with outpatient physical therapy. VITAL SIGNS UPON DISCHARGE: Reveal a temperature of 36.6, pulse of 86, respiratory rate 16, blood pressure 105/66 and pulse ox of 97% on room air. LABORATORY VALUES: On 02/10/2017 reveal a white count of 10, hemoglobin of 10.6, hematocrit 31.6, and platelet count of 226. DISCHARGE INSTRUCTIONS: 1. Discharge home with outpatient services on 02/11/2017. 2. Lovenox 40 mg subQ daily for DVT prophylaxis. 3. Percocet 5/325 mg as needed for pain. 4. The patient may be weightbear as tolerated left lower extremity with walker. 5. Ice and elevate accordingly, left lower extremity. 6. Resume previous diet. 7. Begin outpatient physical therapy on 02/12/2017 at [facility]. 8. Will follow up with Dr. Mayberry 2 weeks after surgery for staple removal. 9. Any other questions notify [facility] at [phone].
[2017-02-11 10:10] VITALS: BP 105/66; PULSE 86; TEMP 36.6; O2SAT 97
[2017-05-13] MEDS ORDERED: PRED1SUS OPL (15:24)
[2017-05-13] MEDS ORDERED: BROM0.07 OPL (15:24)
== END 2017-02-11 12:10 | disposition home or self-care (01) | DRG 465 ==
LOC: ENRESERVDT → ENRESERVTM → C.ACU 07:51 → C.3E 09:50
PROVIDERS: ADMIT Physical Medicine & Rehabilitation Sports Medicine; ATTEND Physical Medicine & Rehabilitation Sports Medicine
PROC: 0SRD0LZ Replacement of Left Knee Joint with Medial Unicondylar Synthetic Substitute, Open Approach (ICD-10-PCS; principal; 2017-02-09 10:00)
PROC: 0SPW0JZ Removal of Synthetic Substitute from Left Knee Joint, Tibial Surface, Open Approach (ICD-10-PCS; principal; 2017-02-09 10:00)
PROC: 0SND0ZZ Release Left Knee Joint, Open Approach (ICD-10-PCS; principal; 2017-02-09 10:00)
DX: T84.093A Other mechanical complication of internal left knee prosthesis, initial encounter (principal); M24.662 Ankylosis, left knee; Y83.1 Surgical operation with implant of artificial internal device as the cause of abnormal reaction of the patient, or of later complication, without mention of misadventure at the time of the procedure; Z96.652 Presence of left artificial knee joint; Z79.82 Long term (current) use of aspirin; Z79.899 Other long term (current) drug therapy; Z83.2 Family history of diseases of the blood and blood-forming organs and certain disorders involving the immune mechanism

== ENCOUNTER → 2017-03-09 | Outpatient (CLI) | payer BC ==
[~2017-03-09] MED LIST changes: -ACETAMINOPHEN 500 MG TAB PO SCH; +BROM0.07 OPL; -BUPIVACAINE 0.5 % 5 MG/1 ML PF 10ML VIAL ONE; -CEFAZOLIN 2000 MG/60 ML D5W 60 ML IV SCH; -CLONIDINE HCL 0.1 MG/24 HR TRANSDERM SYS TD SCH; -CeleBREX 200 MG CAP PO SCH; -DEXAMETHASONE 4 MG TAB PO SCH; -FAMOTIDINE 20 MG TAB PO SCH; -GABAPENTIN 300 MG CAP PO SCH; -LACTATED RINGER'S 1000ML 1,000 ML IV SCH; -LACTATED RINGER'S 1000ML 500 ML IV ONE; -LACTATED RINGER'S 1000ML IV SCH; -METOCLOPRAMIDE HCL 10 MG TAB PO SCH; -NAPR500T3 PO; +OXYC-57 PO; -OXYCODONE HCL 10 MG TABCR (OXYCONTIN) PO SCH; +PRED1SUS OPL; -ROPIVACAINE 0.5% 5 MG/ML 30 ML VIAL ONE; -ROPIVACAINE 5MG/ML 30 ML 100 MG, MoRPHine SULFATE 4 MG, EpINEphrine INJ 1MG/ML AMP 0.2 ... INFIL SCH; -TRAMADOL HCL 50 MG TAB PO SCH
== END | disposition home or self-care (01) ==
LOC: C.RDSM 12:37
PROVIDERS: ATTEND Physical Medicine & Rehabilitation Sports Medicine
DX: M25.662 Stiffness of left knee, not elsewhere classified (principal)

== ENCOUNTER → 2017-03-16 | Outpatient (CLI) | payer BC | END | disposition home or self-care (01) | LOC: C.RDSM 03-06 07:44 | PROVIDERS: ATTEND Physical Medicine & Rehabilitation Sports Medicine | DX: M24.562 Contracture, left knee (principal); M25.662 Stiffness of left knee, not elsewhere classified; Z96.652 Presence of left artificial knee joint ==

== ENCOUNTER → 2017-03-23 | Outpatient (CLI) | payer BC ==
--- NOTE | 2017-03-23 11:34 | DIAGNOSTIC IMAGING REPORT ---
CT OF THE LEFT KNEE WITHOUT CONTRAST CT DOSE: 188.41 mGy.cm CLINICAL HISTORY: Left knee pain status post manipulation. Total left knee arthroplasty. Flexion contracture of knee. TECHNIQUE: Axial images of the left knee were obtained without IV contrast. Sagittal and coronal reconstructions were viewed. COMPARISON STUDY: Left knee radiograph March 16, 2017. FINDINGS: Evaluation of the left knee is difficult due to streak artifact from the total left knee arthroplasty. Alignment of the total left knee arthroplasty is anatomic and there is no definite periprosthetic fracture or lucency. There is apparent cortical irregularity of the lateral metaphysis of the left femur. There is no large left knee joint effusion. There may be a small left knee joint effusion. No mass or fluid collection shown adjacent to the left knee. A few soft tissue calcifications are no clinical significance. There are no unexpected radiopaque foreign bodies. IMPRESSION: 1. Status post total left knee arthroplasty. No definite periprosthetic fracture or lucency. Apparent cortical irregularity of the lateral metaphysis of the left femur. Artifact is favored although a minimally displaced fracture could appear similar. 2. Suspected small left knee joint effusion. 3. Evaluation compromised due to artifact related to the hardware. Electronically signed by: Seth Mata M.D. 03/23/2017 11:32 AM Dictated Date/Time: 03/23/2017 11:18 AM
== END | disposition home or self-care (01) ==
LOC: C.CTS 10:23
PROVIDERS: ATTEND Physical Medicine & Rehabilitation Sports Medicine
DX: M25.662 Stiffness of left knee, not elsewhere classified (principal); Z96.652 Presence of left artificial knee joint; M24.562 Contracture, left knee

== ENCOUNTER → 2017-04-08 | Day surgery (SDC) | payer BC ==
[2017-04-01 10:41] VITALS: Ht 157.5 cm; Wt 80.5 kg
[~2017-04-08] VITALS: Ht 157.5 cm; Wt 80.5 kg
[~2017-04-08] MED LIST changes: -CLC100 PO; -OXYC-57 PO
== END | disposition home or self-care (01) ==
LOC: EDSTATUS 10:30 → C.PAT 13:14
PROVIDERS: ATTEND Physical Medicine & Rehabilitation Sports Medicine
DX: Z96.659 Presence of unspecified artificial knee joint (principal)

== ENCOUNTER → 2017-04-21 | Outpatient (CLI) | payer BC | END | disposition home or self-care (01) | LOC: C.RDSM 16:10 | PROVIDERS: ATTEND Physical Medicine & Rehabilitation Sports Medicine | DX: M25.662 Stiffness of left knee, not elsewhere classified (principal); Z96.652 Presence of left artificial knee joint ==

== ENCOUNTER → 2017-04-28 | Day surgery (SDC) | payer BC ==
[2017-04-19 13:10] VITALS: Ht 157.5 cm; Wt 76.4 kg
[~2017-04-28] VITALS: Ht 157.5 cm; Wt 76.4 kg
[~2017-04-28] MED LIST changes: +500ML BSS 0.3ML EPI 1:1000PF IRRIG ONE; +ACETAMINOPHEN 325 MG TAB ONE; +ACETAMINOPHEN 325 MG TAB PO PRN; +AMVISC PLUS 0.8ML SYRINGE INT OCU ONE; +ATROPINE SULFATE 0.1 MG/ML 5ML SYR IV PRN; +BSS FLUSH ONE; +ENDOCOAT 0.85ML SYRINGE INT OCU ONE; +EpHEDrine SULFATE INJ 50 MG/ML AMP IV PRN; +EpINEphrine INJ 1MG/ML AMP 1 MG/ML AMP ONE; +LACTATED RINGER'S 1000ML 500 ML IV SCH; +LIDOCAINE 4% OP SOLN DROP CHARGE ONE; +LIDOCAINE 4% OP SOLN DROP CHARGE OPL SCH; +LIDOCAINE HCL 1% MPF 2 ML VIAL ONE; +MIDAZOLAM HCL 1 MG/ML 2ML VIAL ONE; +MIX: 4ML BSS 1ML EPI 1:1000 PF TOP ONE; +MOXIFLOXACIN OPH SOLN PER DROP CHARGE ONE; +PHENYLEPHRINE HCL 10% OP SOLN 5 ML BTL OPL ONE; +POVIDONE-IODINE OP SOLN 30 ML BTL ONE; +PROPARACAINE 0.5% OP SOLN PER DROP CHARGE OPL SCH; +PROPARACAINE HCL 0.5% OP SOLN 15 ML BTL OPL ONE; +TOBRAMYCIN/DEXAMETHASONE OPH OINT PER APPLN CHARGE ONE
[2017-04-28] MEDS: PHENYLEPHRINE HCL 2.5% OP SOLN PER DROP CHARGE OPL SCH ×3 (10:58→11:09)
[2017-04-28] MEDS: TROPICAMIDE 1% OP SOLN PER DROP CHARGE OPL SCH ×3 (10:59→11:09)
[2017-04-28] MEDS: CYCLOPENTOLATE HCL 1% OP SOLN PER DROP CHARGE OPL SCH ×3 (11:00→11:10)
[2017-04-28] MEDS: MOXIFLOXACIN OPH SOLN PER DROP CHARGE OPL SCH ×3 (11:01→11:11)
--- NOTE | 2017-04-28 11:20 | History & Physical Bridge - SC ---
H&P Re-Evaluation Bridge Note: I have examined the patient, reviewed the History & Physical and in the interval since the performance of the History & Physical I have noted the following changes of clinical significance: No changes noted. Left eye cataract surgery.
--- NOTE | 2017-04-28 12:34 | [facility] Post Operative Brief Note ---
Immediate Operative Summary Operative Date Apr 28, 2017. Pre-Operative Diagnosis Left Eye Cataract Post-Operative Diagnosis Same Procedure(s) Performed Left Cataract Phacoemulsification With Intraocular Lens Implant: Toric Lens Surgeon Dr Felipe Traffic Control Flagger Surgeon(s) None Estimated Blood Loss 0ml Findings left cataract Specimens None Complication(s) None Disposition
[2017-04-28 12:35] VITALS: TEMP 36.6
--- NOTE | 2017-04-28 12:37 | [facility] Operative Report ---
Operative Report Date of Service Apr 28, 2017. Operative Report DATE OF OPERATION: 04/28/17 PREOPERATIVE DIAGNOSIS: Senile nuclear cataract and astigmatism, left eye POSTOPERATIVE DIAGNOSIS: Senile nuclear cataract and astigmatism, left eye PROCEDURE PERFORMED: Phacoemulsification with toric intraocular lens implantation, left eye SURGEON: Dr. Rhett Felipe ANESTHESIA: Topical with 1% intracameral lidocaine and monitored anesthesia care COMPLICATIONS: None DESCRIPTION OF PROCEDURE: After positively identifying the patient both verbally and by wristband in the preoperative area, the left eye was marked as the operative eye. Using a sterile marker, the 3:00, 6:00, and 9:00 positions on the limbus were marked after placing a drop of proparacaine, and the Robomarker was used to fatemeh the 120 degree axis. The patient was first taken to the laser room for femtosecond laser assist, but the laser part had to be aborted due to poor suction on the eye. The patient was then brought back to the operating room by the anesthesia and nursing staff where they were given a drop of tetracaine and betadine into the operative eye. They were then sterilely prepped and draped in the standard fashion typical for ophthalmic surgery. Steri-strips were placed along the upper eyelids to keep the lashes back, and a lid speculum was placed into the operative eye. At this point, a documented time out was performed with members of the ophthalmology, nursing, and anesthesia staffs all agreeing upon the correct patient, correct location for surgery, correct procedure, and correct type and power of intraocular lens to be implanted. The microscope was then swung into position. Then, a paracentesis wound was made using a sideport blade. Then, in sequence, 1% preservative-free lidocaine followed by Endocoat viscoelastic was injected into the anterior chamber. Next , the main incision was made with a keratome blade in triplanar fashion. A sharp cystotome was introduced into the eye and used to create a tear in the anterior capsule, which was directed into a continuous curvilinear capsulorrhexis using Utrata forceps. Hydrodissection was then performed with BSS on a flat-tip cannula. Next, the phacoemulsification handpiece was introduced into the eye and used to remove the nucleus in a [id number] fashion. This was done without complication and then the irrigation-aspiration handpiece was introduced into the eye and used to remove all remaining cortical and epinuclear material. Amvisc was then injected into the anterior chamber as well as into the capsular bag and using the lens injector system, a [id number] 28.0 D lens, serial number [id number], and expiration date 01/2021 was injected into the capsular bag and rotated into the correct position to correctly line up with the toric marking. Next, the irrigation-aspiration handpiece was used to remove all remaining Amvisc. BSS was used to hydrate the main wound, and then BSS was injected into the paracentesis site to reach physiologic pressure and then the main wound was checked and found to be watertight. The patient was given drops of Vigamox and tobradex ointment into the operative eye, and then the surrounding area was cleaned and dried. A clear plastic shield was placed over the eye and the patient was then sat up and taken from the operating room by the anesthesia staff having tolerated the procedure well and suffering no complications. DISPOSITION: The patient was returned to the recovery room in stable condition. I attest to the content of the Intraoperative Record and any orders documented therein. Any exceptions are noted below.
--- NOTE | 2017-04-28 12:38 | Discharge Instructions-SurgCtr ---
Discharge Instructions Date of Service Apr 28, 2017. Visit Reason for Visit: Cataract Left Eye Discharge Discharge Diagnosis / Problem: left cataract Discharge Goals Goal(s): Decrease discomfort, Improve function Activity Recommendations Activity Limitations: as noted below Anesthesia . Post Anesthesia Instructions: If you have had General Anesthesia or IV Sedation: * Do not drive today. * Resume driving when surgeon permits. * Do not make important decisions or sign legal documents today. * Call surgeon for: 1. Temperature elevations greater than 101 degrees F. 2. Uncontrollable pain. 3. Excessive bleeding. 4. Persistent nausea and vomiting. 5. Medication intolerance (nausea, vomiting or rash). * For nausea and vomiting use only clear liquids such as: tea, soda, bouillon until nausea subsides, then gradually increase diet as tolerated. * If you have any concerns or questions, call your surgeon's office. If physician is unavailable and it is an emergency, call 911 or go to the nearest emergency room. . Instructions / Follow-Up Instructions / Follow-Up ACTIVITY RECOMMENDATIONS: * Light activities. * You may walk outside, read, watch television. * You may notice redness on the white part of the eye and some blurry vision - this is normal. MEDICATIONS: Resume previous medications unless instructed otherwise by your surgeon. Start all eye drops at 2:30 pm today: * Eye drops (today): Prednisone - one drop in operative eye every 2 hours while awake Ofloxacin - one drop in operative eye every 2 hours while awake Ketorolac - one drop in operative eye four times daily SPECIAL CARE INSTRUCTIONS: * Tape plastic shield over eye to sleep at night. Call your doctor at with any concerns or problems. FOLLOW UP VISIT: Follow-up with Dr Felipe at [facility] as scheduled. Diet Recommendations Home Diet: no limitations Procedures Procedures Performed: Left Cataract Phacoemulsification With Intraocular Lens Implant: Toric Lens Pending Studies Studies pending at discharge: no Medical Emergencies . Who to Call and When: Medical Emergencies: If at any time you feel your situation is an emergency, please call 911 immediately. . Non-Emergent Contact Non-Emergency issues call your: Surgeon . . "Provider Documentation" section prepared by Rhett Felipe. .
--- NOTE | 2017-04-28 12:46 | Anesthesia Progress Nt - [facility] ---
Anesthesia Post Op Note Date & Time Apr 28, 2017 at 12:46 Vital Signs Pain Intensity: 3.0 Vital Signs Past 12 Hours Date Time Temp Pulse Resp B/P (MAP) Pulse Ox O2 Delivery O2 Flow Rate FiO2 04/28/17 12:35 36.6 72 12 116/62 (80) 97 Room Air 04/28/17 12:01 70 16 143/95 96 Room Air 04/28/17 11:54 66 16 134/66 97 Room Air 04/28/17 10:53 36.5 75 16 125/67 (86) 96 Room Air Notes Mental Status: alert / awake / arousable, participated in evaluation Pt Amnestic to Procedure: Yes Nausea / Vomiting: adequately controlled Pain: adequately controlled Airway Patency, RR, SpO2: stable & adequate BP & HR: stable & adequate Hydration State: stable & adequate Anesthetic Complications: no major complications apparent
[2017-04-28 12:56] VITALS: BP 129/70; PULSE 68; O2SAT 99
== END | disposition home or self-care (01) ==
LOC: X.SURG 10:30
PROVIDERS: ATTEND Ophthalmology
DX: H25.12 Age-related nuclear cataract, left eye (principal); H52.202 Unspecified astigmatism, left eye; M79.7 Fibromyalgia; Z79.82 Long term (current) use of aspirin; Z79.899 Other long term (current) drug therapy

== ENCOUNTER → 2017-06-02 | Day surgery (SDC) | payer BC ==
[2017-05-13 15:25] VITALS: Ht 157.5 cm; Wt 76.4 kg
[~2017-06-02] VITALS: Ht 157.5 cm; Wt 76.4 kg
[~2017-06-02] MED LIST changes: -ACETAMINOPHEN 325 MG TAB ONE; +FENTANYL CITRATE INJ 50 MCG/1 ML 2 ML VIAL ONE; -LIDOCAINE 4% OP SOLN DROP CHARGE OPL SCH; +LIDOCAINE 4% OP SOLN DROP CHARGE OPR SCH; -PHENYLEPHRINE HCL 10% OP SOLN 5 ML BTL OPL ONE; -PROPARACAINE 0.5% OP SOLN PER DROP CHARGE OPL SCH; +PROPARACAINE 0.5% OP SOLN PER DROP CHARGE OPR SCH; -PROPARACAINE HCL 0.5% OP SOLN 15 ML BTL OPL ONE
[2017-06-02] MEDS: PHENYLEPHRINE HCL 10% OP SOLN PER DROP CHARGE OPR SCH ×3 (06:46→06:56)
[2017-06-02] MEDS: TROPICAMIDE 1% OP SOLN PER DROP CHARGE OPR SCH ×3 (06:47→06:57)
[2017-06-02] MEDS: CYCLOPENTOLATE HCL 1% OP SOLN PER DROP CHARGE OPR SCH ×3 (06:48→06:58)
[2017-06-02] MEDS: MOXIFLOXACIN OPH SOLN PER DROP CHARGE OPR SCH ×3 (06:48→07:02)
--- NOTE | 2017-06-02 08:01 | [facility] Post Operative Brief Note ---
Immediate Operative Summary Operative Date Jun 02, 2017. Pre-Operative Diagnosis Right Eye Cataract Post-Operative Diagnosis same Procedure(s) Performed Right Cataract Phacoemulsification With Intraocular Lens Implant Surgeon Dr. So Felipe Access Clinician Surgeon(s) 0 Estimated Blood Loss 0 Findings right cataract Specimens none Complication(s) None Disposition
[2017-06-02 08:02] VITALS: TEMP 36.5
--- NOTE | 2017-06-02 08:03 | [facility] Operative Report ---
Operative Report Date of Service Jun 02, 2017. Operative Report Phaco with toric IOL DATE OF OPERATION: 06/02/17 PREOPERATIVE DIAGNOSIS: Senile nuclear cataract and astigmatism, right eye POSTOPERATIVE DIAGNOSIS: Senile nuclear cataract and astigmatism, right eye PROCEDURE PERFORMED: Phacoemulsification with toric intraocular lens implantation, right eye SURGEON: Dr. Rhett Felipe ANESTHESIA: Topical with 1% intracameral lidocaine and monitored anesthesia care COMPLICATIONS: None DESCRIPTION OF PROCEDURE: After positively identifying the patient both verbally and by wristband in the preoperative area, the right eye was marked as the operative eye. Using a Robomarker, the 41 degree axis was marked after placing a drop of proparacaine. The patient was then brought back to the operating room by the anesthesia and nursing staff where they were given a drop of tetracaine and betadine into the operative eye. They were then sterilely prepped and draped in the standard fashion typical for ophthalmic surgery. Steri-strips were placed along the upper eyelids to keep the lashes back, and a lid speculum was placed into the operative eye. At this point, a documented time out was performed with members of the ophthalmology, nursing, and anesthesia staffs all agreeing upon the correct patient, correct location for surgery, correct procedure, and correct type and power of intraocular lens to be implanted. The microscope was then swung into position. Then, a paracentesis wound was made using a sideport blade. Then, in sequence, 1% preservative-free lidocaine followed by Endocoat viscoelastic was injected into the anterior chamber. Next , the main incision was made with a keratome blade in triplanar fashion. A sharp cystotome was introduced into the eye and used to create a tear in the anterior capsule, which was directed into a continuous curvilinear capsulorrhexis using Utrata forceps. Hydrodissection was then performed with BSS on a flat-tip cannula. Next, the phacoemulsification handpiece was introduced into the eye and used to remove the nucleus in a [id number] fashion. This was done without complication and then the irrigation-aspiration handpiece was introduced into the eye and used to remove all remaining cortical and epinuclear material. Amvisc was then injected into the anterior chamber as well as into the capsular bag and using the lens injector system, a TLS460 30.0 D lens, serial number [id number], and expiration date 01/2021 was injected into the capsular bag and rotated into the correct position to correctly line up with the toric marking. Next, the irrigation-aspiration handpiece was used to remove all remaining Amvisc. BSS was used to hydrate the main wound, and then BSS was injected into the paracentesis site to reach physiologic pressure and then the main wound was checked and found to be watertight. The patient was given drops of Vigamox and tobradex ointment into the operative eye, and then the surrounding area was cleaned and dried. A clear plastic shield was placed over the eye and the patient was then sat up and taken from the operating room by the anesthesia staff having tolerated the procedure well and suffering no complications. DISPOSITION: The patient was returned to the recovery room in stable condition. I attest to the content of the Intraoperative Record and any orders documented therein. Any exceptions are noted below.
--- NOTE | 2017-06-02 08:04 | Discharge Instructions-SurgCtr ---
Discharge Instructions Date of Service Jun 02, 2017. Visit Reason for Visit: Cataract Right Eye Discharge Discharge Diagnosis / Problem: right cataract Discharge Goals Goal(s): Decrease discomfort, Improve function Activity Recommendations Activity Limitations: as noted below Anesthesia . Post Anesthesia Instructions: If you have had General Anesthesia or IV Sedation: * Do not drive today. * Resume driving when surgeon permits. * Do not make important decisions or sign legal documents today. * Call surgeon for: 1. Temperature elevations greater than 101 degrees F. 2. Uncontrollable pain. 3. Excessive bleeding. 4. Persistent nausea and vomiting. 5. Medication intolerance (nausea, vomiting or rash). * For nausea and vomiting use only clear liquids such as: tea, soda, bouillon until nausea subsides, then gradually increase diet as tolerated. * If you have any concerns or questions, call your surgeon's office. If physician is unavailable and it is an emergency, call 911 or go to the nearest emergency room. . Instructions / Follow-Up Instructions / Follow-Up ACTIVITY RECOMMENDATIONS: * Light activities. * You may walk outside, read, watch television. * You may notice redness on the white part of the eye and some blurry vision - this is normal. MEDICATIONS: Resume previous medications unless instructed otherwise by your surgeon. Start all eye drops at 10 am today: * Eye drops (today): Prednisone - one drop in operative eye every 2 hours while awake Ofloxacin - one drop in operative eye every 2 hours while awake Ketorolac - one drop in operative eye 4 times daily SPECIAL CARE INSTRUCTIONS: * Tape plastic shield over eye to sleep at night. Call your doctor at with any concerns or problems. FOLLOW UP VISIT: Follow-up with Dr Felipe at [facility] as scheduled. Diet Recommendations Home Diet: no limitations Procedures Procedures Performed: Right Cataract Phacoemulsification With Intraocular Lens Implant Pending Studies Studies pending at discharge: no Medical Emergencies . Who to Call and When: Medical Emergencies: If at any time you feel your situation is an emergency, please call 911 immediately. . Non-Emergent Contact Non-Emergency issues call your: Surgeon . . "Provider Documentation" section prepared by Rhett Felipe. .
[2017-06-02 08:25] VITALS: BP 127/67; PULSE 53; O2SAT 98
--- NOTE | 2017-06-02 08:27 | Anesthesia Progress Nt - [facility] ---
Anesthesia Post Op Note Date & Time Jun 02, 2017 at 08:27 Vital Signs Pain Intensity: 0 Vital Signs Past 12 Hours Date Time Temp Pulse Resp B/P (MAP) Pulse Ox O2 Delivery O2 Flow Rate FiO2 06/02/17 08:25 53 16 127/67 (87) 98 Room Air 06/02/17 08:02 36.5 68 18 114/62 (79) 97 Room Air 06/02/17 06:33 36.7 56 16 127/68 (87) 98 Room Air Notes Mental Status: alert / awake / arousable, participated in evaluation Pt Amnestic to Procedure: Yes Nausea / Vomiting: adequately controlled Pain: adequately controlled Airway Patency, RR, SpO2: stable & adequate BP & HR: stable & adequate Hydration State: stable & adequate Anesthetic Complications: no major complications apparent
== END | disposition home or self-care (01) ==
LOC: X.SURG 06:26
PROVIDERS: ATTEND Ophthalmology
DX: H25.11 Age-related nuclear cataract, right eye (principal); E66.9 Obesity, unspecified; M19.90 Unspecified osteoarthritis, unspecified site